=== PATIENT | female | born 1970 | race Hispanic/Latino ===

== ENCOUNTER 2017-07-10 17:54 | Emergency (ER) | payer MEDICAID ==
[2017-07-10] MEDS ORDERED: ONDANSETRON ODT 4 MG TAB ONE (19:16)
[2017-07-10 20:01] LABS: RAPID GROUP A STREP NEGATIVE (NEGATIVE)
== END 2017-07-10 20:29 | disposition home or self-care (01) ==
LOC: EDH 17:54
DX: B34.9 Viral infection, unspecified (principal); R19.7 Diarrhea, unspecified; R11.0 Nausea; M19.90 Unspecified osteoarthritis, unspecified site; Z90.710 Acquired absence of both cervix and uterus; Z88.8 Allergy status to other drugs, medicaments and biological substances
CPT/HCPCS: 87804; 87880